=== PATIENT | female | born 1980 | race Caucasian/White ===

== ENCOUNTER 2016-10-28 02:08 | Emergency (ER) | payer OTHER, MEDICAID ==
[~2016-10-28] VITALS: Ht 157.5 cm; Wt 117.0 kg
[2016-10-28 02:20] VITALS: BP_SYST 145
[2016-10-28] MEDS ORDERED: KETOROLAC TROMETHAMINE 60 MG/2 ML VIAL IM ONE (02:45)
[2016-10-28 05:31] VITALS: BP_SYST 145
== END 2016-10-28 05:31 | disposition home or self-care (01) ==
LOC: SED 02:08
DX: S39.012A Strain of muscle, fascia and tendon of lower back, initial encounter (principal); M54.30 Sciatica, unspecified side; I10 Essential (primary) hypertension; W18.2XXA Fall in (into) shower or empty bathtub, initial encounter; Y93.E1 Activity, personal bathing and showering; Y92.091 Bathroom in other non-institutional residence as the place of occurrence of the external cause; Y99.8 Other external cause status
CPT/HCPCS: 72100; 81025; 96372; 99284; J1885